=== PATIENT | female | born 1995 | race Caucasian/White ===

== ENCOUNTER 2016-06-28 14:12 | Emergency (ER) | payer OTHER ==
[2016-06-28 14:13] VITALS: BMI 20.7
[2016-06-28 14:54] VITALS: BP 99/64; PULSE 68; RESP 20; TEMP 98.2; O2SAT 99
--- NOTE | 2016-06-28 15:25 | C.PDOC ---
History Of Present Illness 20 yr old female presents to the ER with complaints of left ear pain, internally and externally for the past 6 days. Also reports of sinus congestion and cough. Patient denies fever, chills, nausea, vomiting, neck pain, weakness or numbness. Time Seen by Provider: 06/28/16 14:58 Chief Complaint (Nursing): ENT Problem History Per: Patient History/Exam Limitations: None Onset/Duration Of Symptoms: Days (6) Current Symptoms Are (Timing): Still Present Past Medical History Reviewed: Historical Data, Nursing Documentation, Vital Signs Vital Signs: Last Vital Signs Temp 98.2 F 06/28/16 14:48 Pulse 68 06/28/16 14:48 Resp 20 06/28/16 14:48 BP 99/64 L 06/28/16 14:48 Pulse Ox 99 06/28/16 15:26 - Medical History PMH: Asthma Family History: States: No Known Family Hx - Social History Hx Tobacco Use: No Hx Alcohol Use: No Hx Substance Use: No - Immunization History Hx Tetanus Toxoid Vaccination: No Hx Influenza Vaccination: No Hx Pneumococcal Vaccination: No Review Of Systems Except As Marked, All Systems Reviewed And Found Negative. Constitutional: Negative for: Fever, Chills ENT: Positive for: Ear Pain (Left ear ) Gastrointestinal: Negative for: Nausea, Vomiting Musculoskeletal: Negative for: Neck Pain Neurological: Negative for: Weakness, Numbness Physical Exam - Physical Exam Appears: Well, Non-toxic, No Acute Distress Skin: Warm, Dry, No Rash Head: Atraumatic, Normacephalic Eye(s): bilateral: Normal Inspection, PERRL, EOMI Ear(s): Bilateral: Normal Oral Mucosa: Moist Throat: Normal, No Erythema, No Exudate Neck: Normal, Normal ROM, Supple Chest: Symmetrical, No Tenderness Cardiovascular: Rhythm Regular, No Murmur Respiratory: Normal Breath Sounds, No Rales, No Rhonchi, No Stridor, No Wheezing Extremity: Normal ROM, No Swelling Neurological/Psych: Oriented x3, Normal Speech, Normal Motor ED Course And Treatment O2 Sat by Pulse Oximetry: 99 Medical Decision Making Medical Decision Making: PLAN: * Claritin PO * Motrin PO * Tylenol PO Disposition Counseled Patient/Family Regarding: Diagnosis, Need For Followup, Rx Given - Disposition Disposition: HOME/ ROUTINE Disposition Time: 15:21 Condition: GOOD Additional Instructions: Follow up with your docyor and your ENT doctor next week. Prescriptions: Ciprofloxacin/Dexamethasone [Ciprodex 0.3%-0.1% 7.5 Ml] 1 drop OT TID #1 bottle Loratadine/Pseudoephedrine [Claritin-D 24 Hour Tablet] 1 each PO DAILY #10 tab.er.24h Ibuprofen [Motrin] 600 mg PO TID #15 tab Instructions: Earache (ED) Forms: Gen Discharge Inst Armenian, Work Excuse - POA Present On Arrival: None - Clinical Impression Clinical Impression: Ear pain, left, Seasonal allergies - Scribe Statement The provider has reviewed the documentation as recorded by the Schuyler Powers Provider Attestation: All medical record entries made by the Carrollibsteven were at my direction and personally dictated by me. I have reviewed the chart and agree that the record accurately reflects my personal performance of the history, physical exam, medical decision making, and the department course for this patient. I have also personally directed, reviewed, and agree with the discharge instructions and disposition.
== END 2016-06-28 15:34 | disposition home or self-care (01) ==
LOC: C.ER 14:12
DX: H92.02 Otalgia, left ear (principal); J30.2 Other seasonal allergic rhinitis

== ENCOUNTER 2016-11-09 19:23 | Emergency (ER) | payer OTHER ==
[2016-11-09 19:24] VITALS: BMI 20.7
[2016-11-09 20:05] LABS: ABG ALLEN TEST POS; ARTERIAL BLOOD HGB O2 SAT 95.9 % (95.0-98.0); CARBOXYHEMOGLOBIN 2.1 % (0.5-1.5); DRAW SITE RRA; HHB 0.8 % (0.0-5.0); METHEMOGLOBIN 1.2 % (0.0-3.0)
[2016-11-09 20:06] LABS: BASO # 0.1 K/uL (0.0-0.2); BASO % 0.6 % (0.0-2.0); EOS # 0.3 K/uL (0.0-0.7); EOS % 2.3 % (0.0-4.0); HEMATOCRIT 36.8 % (34.0-47.0); LYMPH # 2.6 K/uL (1.0-4.3); LYMPH % 22.7 % (20.0-40.0); MEAN CELL VOLUME 85.1 fL (81.0-99.0); MEAN CORPUSCULAR HEMOGLOBIN 28.8 pg (27.0-31.0); MEAN CORPUSCULAR HGB CONC 33.8 g/dL (33.0-37.0); MEAN PLATELET VOLUME 9.1 fL (7.2-11.7); MONO # 0.7 K/uL (0.0-0.8); MONO % 5.9 % (0.0-10.0); WHITE BLOOD COUNT 11.7 K/uL (4.8-10.8)
[2016-11-09 20:07] LABS: ARTERIAL BLOOD HGB O2 SAT 96.2 % (95.0-98.0); CARBOXYHEMOGLOBIN 2.2 % (0.5-1.5); METHEMOGLOBIN 1.1 % (0.0-3.0)
[2016-11-09 20:14] LABS: CHLORIDE 106 mmol/L (98-107); POTASSIUM 3.8 mmol/L (3.6-5.2); SODIUM 142 mmol/L (132-148)
[2016-11-09 20:16] LABS: ALB/GLOB RATIO 1.3 (1.0-2.1); AST/SGOT 25 U/L (14-36); BILIRUBIN,TOTAL 0.6 mg/dL (0.2-1.3); CARBON DIOXIDE 23 mmol/L (22-30); GFR AFRICAN-AMERICAN > 60
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
[2016-11-09 20:17] LABS: ALKALINE PHOSPHATASE 73 U/L (38-126); ALT/SGPT 26 U/L (9-52); BLOOD UREA NITROGEN 15 mg/dL (7-17); CALCIUM 9.1 mg/dl (8.6-10.4); GLUCOSE,RANDOM 87 mg/dL (65-105)
[2016-11-09 23:08] VITALS: BP 103/68; PULSE 75; RESP 19; TEMP 98.1; O2SAT 97
--- NOTE | 2016-11-10 11:24 | RAD ---
HISTORY: SOB COMPARISON: Chest radiographs 05/15/2016. TECHNIQUE: Chest PA and lateral FINDINGS: LUNGS: No active pulmonary disease. PLEURA: No significant pleural effusion identified. No pneumothorax apparent. CARDIOVASCULAR: Normal. OSSEOUS STRUCTURES: No significant abnormalities. VISUALIZED UPPER ABDOMEN: Normal. OTHER FINDINGS: None. IMPRESSION: No acute cardiopulmonary disease identified or significant interval change.
--- NOTE | 2016-11-23 20:41 | CARD ---
APPROVED REPORT EKG Measurement Heart [id number] OH 104P-6 [id number] <Conclusion> Sinus rhythm with short OH Rightward axis Borderline ECG
== END 2016-11-09 23:05 | disposition home or self-care (01) ==
LOC: C.ER 19:23
DX: T59.811A Toxic effect of smoke, accidental (unintentional), initial encounter (principal); J70.5 Respiratory conditions due to smoke inhalation; Y92.410 Unspecified street and highway as the place of occurrence of the external cause

== ENCOUNTER 2017-04-11 16:11 | Emergency (ER) | payer SELFPAY ==
[2017-04-11 16:11] VITALS: BMI 20.7
[2017-04-11 16:40] VITALS: RESP 18
[2017-04-11] MEDS ORDERED: Albuterol 0.083% Inhal Sol (2.5 mg/3 mL) UD INH STA (17:53)
[2017-04-11] MEDS ORDERED: Aluminum Hydroxide/Magnesium Hydroxide Susp (30 mL) PO STA (17:55)
--- NOTE | 2017-04-11 17:57 | C.PDOC ---
History Of Present Illness 21 y/o female with hx asthma c/o intermittent fevers over last week, max 103, with cough that had green sputum, now white. pt c/o burningf in chest/throat with cough, pleuritic cp with cough. Time Seen by Provider: 04/11/17 17:10 Chief Complaint (Nursing): Flu-like Symptoms History Per: Patient History/Exam Limitations: no limitations Onset/Duration Of Symptoms: Days (7) Current Symptoms Are (Timing): Still Present Location Of Pain: Throat Sick Contacts (Context): None Associated Symptoms: Fever, Chills, Sore Throat, Cough, Sputum. denies: Vomiting, Diarrhea Ear Symptoms: Bilateral: None Past Medical History Reviewed: Historical Data, Nursing Documentation, Vital Signs Vital Signs: Last Vital Signs Temp 98.1 F 04/11/17 18:33 Pulse 86 04/11/17 18:33 Resp 18 04/11/17 18:33 BP 122/76 04/11/17 18:33 Pulse Ox 100 04/11/17 18:33 - Medical History PMH: Anxiety, Asthma, Bipolar Disorder Denies: Chronic Kidney Disease Family History: States: Unknown Family Hx - Social History Hx Tobacco Use: No Hx Alcohol Use: Yes Hx Substance Use: Yes - Immunization History Hx Tetanus Toxoid Vaccination: No Hx Influenza Vaccination: No Hx Pneumococcal Vaccination: No Review Of Systems Constitutional: Positive for: Fever, Chills ENT: Positive for: Throat Pain. Negative for: Throat Swelling Cardiovascular: Negative for: Chest Pain Respiratory: Positive for: Cough, Pleuritic Pain, Sputum. Negative for: Shortness of Breath, Hemoptysis Gastrointestinal: Negative for: Abdominal Pain Physical Exam - Physical Exam Appears: Non-toxic, No Acute Distress Skin: Warm, Dry Head: Atraumatic, Normacephalic Tongue: Normal Appearing Lips: Normal Appearing Teeth: Normal Dentition Throat: Erythema, No Exudate Neck: Supple Cardiovascular: Rhythm Regular, No Murmur Respiratory: No Decreased Breath Sounds, No Accessory Muscle Use, No Rales, No Rhonchi, No Wheezing Gastrointestinal/Abdominal: Soft, No Tenderness ED Course And Treatment O2 Sat by Pulse Oximetry: 99 Medical Decision Making Medical Decision Makin week fever on and off, cough. sore throat from cough. treat supportively- give albuterol, tylenol Maalox. 645 pm pt feeling much better after treatment. will d/c with albuterol and tylenol. Disposition Counseled Patient/Family Regarding: Diagnosis, Need For Followup, Rx Given - Disposition Referrals: [facility] [Outside] Disposition: HOME/ ROUTINE Disposition Time: 18:46 Condition: IMPROVED Additional Instructions: Please take Tylenol as prescribed for pain. Use inhaler 2 puffs every 4-6 hours as needed. Follow up with your doctor in a few days or medical clinic. Prescriptions: Acetaminophen [Tylenol 325mg tab] 650 mg PO Q6 #30 tab Albuterol HFA [Ventolin HFA 90 mcg/actuation (8 g)] 2 puff IH Q6 #1 inhaler Instructions: Acute Bronchitis (ED) Forms: [facility] (Portuguese), General Discharge Instructions - Clinical Impression Clinical Impression: Bronchitis
[2017-04-11] MEDS ORDERED: Aluminum Hydroxide/Magnesium Hydroxide Susp (30 mL) ONE (18:17)
[2017-04-11 18:33] VITALS: BP 122/76; PULSE 86; TEMP 98.1
[2017-04-11 18:48] VITALS: O2SAT 99
== END 2017-04-11 19:01 | disposition home or self-care (01) ==
LOC: C.ER 16:11
DX: J40 Bronchitis, not specified as acute or chronic (principal)

== ENCOUNTER 2018-01-17 11:47 | Emergency (ER) | payer MEDICAID, OTHER ==
[2018-01-17 11:48] VITALS: BMI 20.7
[2018-01-17] MEDS ORDERED: Sodium Chloride 0.9% 1,000 ML ONE (12:42)
[2018-01-17] MEDS ORDERED: Sodium Chloride 0.9% 1,000 ML IV ONE (12:52)
--- NOTE | 2018-01-17 12:52 | C.PDOC ---
History Of Present Illness 22 y/o female c/o two weeks of sore throat, cough and feeling febrile at night. seen by pmd twice and completed one 5 day course of antibiotics and 4 days of another, still with same symptoms. pt reports multiple episodes of vomiting and diarrhea since early this morning with nausea, and abdominal pain. no fever today, no recent sick contacts. Time Seen by Provider: 01/17/18 12:30 Chief Complaint (Nursing): Abdominal Pain History Per: Patient History/Exam Limitations: no limitations Onset/Duration Of Symptoms: Days (1) Radiation Of Pain To:: None Quality Of Discomfort: Unable To Describe Associated Symptoms: Nausea, Vomiting, Diarrhea. denies: Fever, Chills, Back Pain, Chest Pain, Constipation, Urinary Symptoms Abnormal Vaginal Bleeding: No Past Medical History Reviewed: Historical Data, Nursing Documentation, Vital Signs Vital Signs: Last Vital Signs Temp 97.5 F L 01/17/18 11:54 Pulse 90 01/17/18 11:54 Resp 17 01/17/18 11:54 BP 121/84 01/17/18 11:54 Pulse Ox 99 01/17/18 11:54 - Medical History PMH: Anxiety, Asthma, Bipolar Disorder Denies: Chronic Kidney Disease Family History: States: Unknown Family Hx - Social History Hx Tobacco Use: No Hx Alcohol Use: No Hx Substance Use: No - Immunization History Hx Tetanus Toxoid Vaccination: No Hx Influenza Vaccination: Yes Hx Pneumococcal Vaccination: No Review Of Systems Constitutional: Positive for: Fever (subjective) ENT: Positive for: Throat Pain Respiratory: Positive for: Cough. Negative for: Shortness of Breath Gastrointestinal: Positive for: Nausea, Vomiting, Abdominal Pain, Diarrhea Genitourinary: Negative for: Dysuria Skin: Negative for: Rash Neurological: Negative for: Weakness, Numbness Physical Exam - Physical Exam Appears: Non-toxic, No Acute Distress, Other (lying on stretcher. talking on phone ) Skin: Warm, Dry Head: Atraumatic, Normacephalic Eye(s): bilateral: Normal Inspection Nose: Discharge Oral Mucosa: Moist Tongue: Normal Appearing Lips: Normal Appearing Throat: No Erythema, No Exudate, No Mass Neck: Supple Cardiovascular: Rhythm Regular, No Murmur Respiratory: No Decreased Breath Sounds, No Rales, No Rhonchi, No Wheezing Gastrointestinal/Abdominal: Bowel Sounds, Soft, No Tenderness, No Distention, No Guarding, No Rebound Neurological/Psych: Oriented x3, Normal Speech, Normal Cognition, Normal Motor, Normal Sensation ED Course And Treatment - Laboratory Results Result Diagrams: 01/17/18 12:58 01/17/18 12:58 O2 Sat by Pulse Oximetry: 99 Medical Decision Making Medical Decision Making: pt with few weeks cough and sore throat, s/p 2 rounds of antibiotics form pmd, still coughing. also with nausea, vomiting and diarrhea today and mild ab paoin..\on exam, pt non toxic, appear comfortable, talking on phone. cxr neg for pna. pt given ivf and zofran, now tolerating po fluids, abdomen with normoactive bs, soft, nd, nt on re-exam. will d/c home with pmd f/. Disposition Counseled Patient/Family Regarding: Studies Performed, Diagnosis, Need For Followup, Rx Given - Disposition Referrals: Naga Gutierrez MD [Staff Provider] - Disposition: HOME/ ROUTINE Disposition Time: 15:48 Condition: IMPROVED Additional Instructions: Please drink increased clear fluids in small amounts at a time. Take ondansetron if needed. Once keeping fluids down, add on banana, tea, toast, plain white rice (bland foods) and gradually add foods as tolerated. Return to ER for any worse symptoms. Follow up with your doctor next week. Prescriptions: Ondansetron ODT [Zofran ODT] 4 mg PO TID #12 odt Instructions: Viral Gastroenteritis, Adult (DC) Forms: General Discharge Instructions, [facility] (Romansh), Work Excuse - Clinical Impression Clinical Impression: Gastroenteritis
[2018-01-17 12:54] LABS: SQUAMOUS EPITHIAL 7 /hpf (0-5); URINE BACTERIA RARE (<OCC); URINE BILIRUBIN NEGATIVE (NEGATIVE); URINE BLOOD NEGATIVE (NEGATIVE); URINE CLARITY Hazy (Clear); URINE COLOR Yellow (YELLOW); URINE GLUCOSE (UA) NORMAL (Normal); URINE LEUKOCYTE ESTERASE NEG Leu/uL (Negative); URINE PROTEIN 1+ mg/dL (NEGATIVE); URINE UROBILINOGEN NORMAL mg/dL (0.2-1.0)
[2018-01-17 13:01] LABS: BASO % 0.1 % (0.0-2.0); EOS # 0.2 K/uL (0.0-0.7); HEMOGLOBIN 13.7 g/dL (11.0-16.0); LYMPH # 0.8 K/uL (1.0-4.3); LYMPH % 4.7 % (20.0-40.0); MEAN CELL VOLUME 85.5 fL (81.0-99.0); MEAN CORPUSCULAR HEMOGLOBIN 28.5 pg (27.0-31.0); MEAN CORPUSCULAR HGB CONC 33.3 g/dL (33.0-37.0); MEAN PLATELET VOLUME 9.2 fL (7.2-11.7); MONO # 0.6 K/uL (0.0-0.8); MONO % 3.7 % (0.0-10.0); NEUT # 14.9 K/uL (1.8-7.0); NEUT % 90.5 % (50.0-75.0); NRBC % 0.1 % (0.0-2.0); PLATELET COUNT 381 K/uL (130-400); RED CELL DISTRIBUTION WIDTH 14.5 % (11.5-14.5); WHITE BLOOD COUNT 16.4 K/uL (4.8-10.8)
[2018-01-17 13:14] LABS: ALB/GLOB RATIO 1.3 (1.0-2.1); ALBUMIN 4.8 g/dL (3.5-5.0); BLOOD UREA NITROGEN 16 mg/dL (7-17); CALCIUM 9.3 mg/dl (8.6-10.4); GFR NON-AFRICAN AMERICAN > 60; LIPASE 39 U/L (23-300)
[2018-01-17 13:15] LABS: ALT/SGPT 25 U/L (9-52); AST/SGOT 35 U/L (14-36)
[2018-01-17 13:27] LABS: BANDS 2 % (0-2); EOSINOPHIL 2 % (0-4); LYMPHOCYTE 3 % (20-40); MONOCYTE 3 % (0-10); NEUTROPHIL 90 % (50-75); PLATELET ESTIMATE NORMAL (NORMAL); TOTAL CELLS COUNTED 100
--- NOTE | 2018-01-17 13:45 | RAD ---
Date of service: 01/17/2018 HISTORY: Cough and fever times 3 weeks COMPARISON: 11/09/2016. TECHNIQUE: Chest PA and lateral FINDINGS: LINES AND TUBES: None. LUNG AND PLEURA: The lungs are well inflated and clear. No pleural effusion or pneumothorax. HEART AND MEDIASTINUM: The heart is not enlarged. No aortic atherosclerotic calcification present. The hilar and mediastinal contours are within normal limits. SKELETAL STRUCTURES: The bony structures are within normal limits for the patient's age. VISUALIZED UPPER ABDOMEN: Normal. OTHER FINDINGS: None. IMPRESSION: No active pulmonary disease.
[2018-01-17 14:55] VITALS: BP 115/80; PULSE 94; RESP 18; TEMP 98.6
[2018-01-17 15:47] VITALS: O2SAT 99
== END 2018-01-17 15:58 | disposition home or self-care (01) ==
LOC: C.ER 11:47
DX: K52.9 Noninfective gastroenteritis and colitis, unspecified (principal)
CPT/HCPCS: 71046; 80053; 81001; 83690; 85025; 96361; 96374; 99285; J2405; J7030

== ENCOUNTER 2018-01-27 07:38 | Emergency (ER) | payer OTHER ==
[2018-01-27 07:38] VITALS: BMI 20.7
[2018-01-27 07:45] VITALS: RESP 18; TEMP 98.8
[2018-01-27] MEDS ORDERED: Iohexol 240 (50 ml) PO STA (08:05)
[2018-01-27] MEDS ORDERED: Sodium Chloride 0.9% 1,000 ML IV ONE (08:05)
--- NOTE | 2018-01-27 08:06 | C.PDOC ---
History Of Present Illness 22 y/o female presents to ED with c/o left sided abdominal pain associated with vomiting for 1 week. Patient states she was seen at ED 1 week ago and diagnosed with Gastritis, states she followed up with PMD Dr. Smiley Gutierrez and was given Zantac and Zofran with no improvement. Patient states for 3 days pain and vomiting are worse, notes weight loss and currently denies fever, constipation, diarrhea, blood in stool, blood in emesis, dysuria, back pain, recent travel or any other complaints at this time. Time Seen by Provider: 01/27/18 07:53 Chief Complaint (Nursing): Abdominal Pain History Per: Patient History/Exam Limitations: no limitations Onset/Duration Of Symptoms: Days Current Symptoms Are (Timing): Still Present Location Of Pain/Discomfort: LUQ, LLQ Past Medical History Reviewed: Historical Data, Nursing Documentation, Vital Signs Vital Signs: Last Vital Signs Temp 98.8 F 01/27/18 07:40 Pulse 59 L 01/27/18 07:40 Resp 18 01/27/18 07:40 BP 105/74 01/27/18 07:40 Pulse Ox 97 01/27/18 07:40 - Medical History PMH: Anxiety, Asthma, Bipolar Disorder Surgical History: No Surg Hx Family History: States: No Known Family Hx - Social History Hx Tobacco Use: No Hx Alcohol Use: No Hx Substance Use: No - Immunization History Hx Tetanus Toxoid Vaccination: No Hx Influenza Vaccination: Yes Hx Pneumococcal Vaccination: No Review Of Systems Constitutional: Negative for: Fever, Chills Gastrointestinal: Positive for: Vomiting, Abdominal Pain. Negative for: Diarrhea, Constipation, Hematochezia, Hematemesis Musculoskeletal: Negative for: Back Pain Skin: Negative for: Rash Physical Exam - Physical Exam Appears: Non-toxic, No Acute Distress Skin: Warm, Dry, No Rash Head: Atraumatic, Normacephalic Eye(s): bilateral: Normal Inspection Oral Mucosa: Moist Neck: Normal ROM, Supple Cardiovascular: Rhythm Regular Respiratory: Normal Breath Sounds, No Rales, No Rhonchi, No Wheezing Gastrointestinal/Abdominal: Soft, No Tenderness, No Guarding, No Rebound Back: No CVA Tenderness Neurological/Psych: Oriented x3, Normal Speech, Normal Cognition ED Course And Treatment - Laboratory Results Result Diagrams: 01/27/18 08:25 01/27/18 08:25 Lab Interpretation: No Acute Changes O2 Sat by Pulse Oximetry: 97 (RA) Pulse Ox Interpretation: Normal - CT Scan/US abd/pelvis Other Rad Studies (CT/US): Read By Radiologist, Radiology Report Reviewed CT/US Interpretation: Accession No. : [id number]. Patient Name / ID : GLENN ALONZO / [id number]. Exam Date : 01/27/2018 11:20:32 ( Approved ). Study Comment : Sex / Age : F / 22Y. Creator : Hallie Santamaria. Dictator : En Best MD. Sand And Gravel Plant Operator : Store Keeper : En Best MD. Approver2 : Report Date : 01/27/2018 11:33:12. My Comment : . Date of service: 01/27/2018. PROCEDURE: CT Abdomen and Pelvis without intravenous contrast. HISTORY: left upper abd pain. COMPARISON: 05/15/2015. TECHNIQUE: Without contrast.. Contrast dose: 0. Radiation dose: Total exam DLP = 611.12 mGy-cm. This CT exam was performed using one or more of the following dose reduction techniques: Automated exposure control, adjustment of the mA and/or kV according to patient size, and/or use of iterative reconstruction technique. FINDINGS: LOWER THORAX: Unremarkable. LIVER: Unremarkable. No gross lesion or ductal dilatation. GALLBLADDER AND BILE DUCTS: Unremarkable. PANCREAS: Unremarkable. No gross lesion or ductal dilatation. SPLEEN: Unremarkable. ADRENALS: Unremarkable. No mass. KIDNEYS AND URETERS: Unremarkable. No hydronephrosis. No solid mass. VASCULATURE: Unremarkable. No aortic aneurysm. No aortic atherosclerotic calcification or mural plaque present. BOWEL: Unremarkable. No obstruction. No gross mural thickening. APPENDIX: Unremarkable. Normal appendix. PERITONEUM: Unremarkable. No free fluid. No free air. LYMPH NODES: Unremarkable. No enlarged lymph nodes. BLADDER: Unremarkable. REPRODUCTIVE: Unremarkable uterus. Intrauterine device noted within uterus. BONES: No acute fracture. OTHER FINDINGS: None. IMPRES KASSANDRA: No acute abnormality. Intrauterine device noted. Otherwise unremarkable examination. Medical Decision Making Medical Decision Making: Impression: Abdominal pain Plan: * CT abd/pelvis * Blood work * ua * Pepcid * Reglan * IV fluids Progress: Labs reviewed. At 1100 am the patient is asking for discharge. 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 The patient feels well, has no fever and in no distress during ED observation. CT report is not back, but looked normal. I informed patient will contact with any results. Patient feels comfortable and will be discharged. 1200 CT reviewed with no acute abnormality. I contact patient at phone provided and informed her of results and advised she follow up with GI. Disposition Counseled Patient/Family Regarding: Diagnosis, Need For Followup - Disposition Referrals: Eduardo Nick [Staff Provider] - Disposition: HOME/ ROUTINE Disposition Time: 11:51 Condition: GOOD Additional Instructions: Please continue with medications given to you Follow up with GI specialist Prescriptions: Metoclopramide [Reglan] 1 tab PO TID PRN #25 tab PRN Reason: Nausea/Vomiting Instructions: Gastritis (DC) Forms: [facility] (Yoruba), Work Excuse - POA Present On Arrival: None - Clinical Impression Clinical Impression: Gastritis - PA / CLUB ROOM ATTENDANT / Resident Statement MD/DO has reviewed & agrees with the documentation as recorded. - Scribe Statement The provider has reviewed the documentation as recorded by the Scribe Jaleel Pacheco All medical record entries made by the Schuyler were at my direction and personally dictated by me. I have reviewed the chart and agree that the record accurately reflects my personal performance of the history, physical exam, medical decision making, and the department course for this patient. I have also personally directed, reviewed, and agree with the discharge instructions and disposition.
[2018-01-27] MEDS ORDERED: Sodium Chloride 0.9% 250 ML IV ONE (08:11)
[2018-01-27 08:33] LABS: BASO # 0.1 K/uL (0.0-0.2); BASO % 0.6 % (0.0-2.0); EOS # 0.3 K/uL (0.0-0.7); EOS % 2.7 % (0.0-4.0); HEMOGLOBIN 12.5 g/dL (11.0-16.0); LYMPH # 2.7 K/uL (1.0-4.3); LYMPH % 24.2 % (20.0-40.0); MEAN CORPUSCULAR HEMOGLOBIN 28.6 pg (27.0-31.0); MEAN CORPUSCULAR HGB CONC 33.7 g/dL (33.0-37.0); MEAN PLATELET VOLUME 9.2 fL (7.2-11.7); MONO # 0.9 K/uL (0.0-0.8); MONO % 8.5 % (0.0-10.0); NEUT # 7.1 K/uL (1.8-7.0); NRBC % 0.1 % (0.0-2.0); RBC 4.36 Mil/uL (3.80-5.20); RED CELL DISTRIBUTION WIDTH 14.5 % (11.5-14.5); WHITE BLOOD COUNT 11.2 K/uL (4.8-10.8)
[2018-01-27 08:42] LABS: ALT/SGPT 33 U/L (9-52); AST/SGOT 27 U/L (14-36); BLOOD UREA NITROGEN 8 mg/dL (7-17); CALCIUM 9.2 mg/dl (8.6-10.4); GFR NON-AFRICAN AMERICAN > 60; LIPASE 31 U/L (23-300)
[2018-01-27 08:43] LABS: ALBUMIN 4.5 g/dL (3.5-5.0)
[2018-01-27 09:08] LABS: ALB/GLOB RATIO 1.4 (1.0-2.1)
[2018-01-27 09:26] LABS: HCG,QUALITATIVE URINE NEGATIVE (NEGATIVE)
[2018-01-27 09:30] LABS: SQUAMOUS EPITHIAL 41 /hpf (0-5); URINE BACTERIA FEW (<OCC); URINE BILIRUBIN NEGATIVE (NEGATIVE); URINE BLOOD NEGATIVE (NEGATIVE); URINE CLARITY Hazy (Clear); URINE COLOR Yellow (YELLOW); URINE GLUCOSE (UA) NORMAL (Normal); URINE LEUKOCYTE ESTERASE NEG Leu/uL (Negative); URINE PROTEIN NEGATIVE (NEGATIVE); URINE UROBILINOGEN NORMAL mg/dL (0.2-1.0)
[2018-01-27] MEDS ORDERED: Iohexol 240 (50 ml) ONE (09:33)
[2018-01-27 12:03] VITALS: BP 111/75; PULSE 76
--- NOTE | 2018-01-27 12:30 | CT ---
Date of service: 01/27/2018 PROCEDURE: CT Abdomen and Pelvis without intravenous contrast HISTORY: left upper abd pain COMPARISON: 05/15/2015 TECHNIQUE: Without contrast.. Contrast dose: 0 Radiation dose: Total exam DLP = 611.12 mGy-cm. This CT exam was performed using one or more of the following dose reduction techniques: Automated exposure control, adjustment of the mA and/or kV according to patient size, and/or use of iterative reconstruction technique. FINDINGS: LOWER THORAX: Unremarkable. LIVER: Unremarkable. No gross lesion or ductal dilatation. GALLBLADDER AND BILE DUCTS: Unremarkable. PANCREAS: Unremarkable. No gross lesion or ductal dilatation. SPLEEN: Unremarkable. ADRENALS: Unremarkable. No mass. KIDNEYS AND URETERS: Unremarkable. No hydronephrosis. No solid mass. VASCULATURE: Unremarkable. No aortic aneurysm. No aortic atherosclerotic calcification or mural plaque present. BOWEL: Unremarkable. No obstruction. No gross mural thickening. APPENDIX: Unremarkable. Normal appendix. PERITONEUM: Unremarkable. No free fluid. No free air. LYMPH NODES: Unremarkable. No enlarged lymph nodes. BLADDER: Unremarkable. REPRODUCTIVE: Unremarkable uterus. Intrauterine device noted within uterus. BONES: No acute fracture. OTHER FINDINGS: None. IMPRESSION: No acute abnormality. Intrauterine device noted. Otherwise unremarkable examination.
[2018-01-28 00:22] VITALS: O2SAT 97
== END 2018-01-27 12:03 | disposition home or self-care (01) ==
LOC: C.ER 07:38
DX: K29.70 Gastritis, unspecified, without bleeding (principal)
CPT/HCPCS: 74176; 80053; 81001; 83690; 84703; 85025; 96361; 96374; 96375; 99284; J2765; J7030; Q9966

== ENCOUNTER 2018-02-26 20:43 | Emergency (ER) | payer OTHER ==
[2018-02-26 20:43] VITALS: BMI 20.7
[2018-02-26] MEDS ORDERED: Hydrocodone/Acetaminophen 5 mg /300 mg Tab PO STA (21:36)
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
[2018-02-26 23:37] VITALS: BP 121/71; PULSE 74; RESP 18; TEMP 98; O2SAT 96
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
== END 2018-02-26 23:37 | disposition home or self-care (01) ==
LOC: C.ER 20:43
DX: S00.83XA Contusion of other part of head, initial encounter (principal); V49.59XA Passenger injured in collision with other motor vehicles in traffic accident, initial encounter; Y92.410 Unspecified street and highway as the place of occurrence of the external cause